=== PATIENT | male | born 1985 | race Caucasian/White ===

== ENCOUNTER 2017-10-24 19:51 | Emergency (ER) | payer SELFPAY ==
[2017-10-24 19:58] VITALS: BP 129/85; PULSE 79; RESP 16; TEMP 98.5; O2SAT 98
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
[2017-10-24] MEDS ORDERED: Lidocaine 2% w Epi 1:100,000 Inj IJ ONE (20:38)
[2017-10-24] MEDS: Lidocaine 2% w Epi 1:100,000 Inj IJ ONE (20:42)
== END 2017-10-24 21:45 | disposition home or self-care (01) ==
LOC: H.ER 19:51
DX: S81.011A Laceration without foreign body, right knee, initial encounter (principal); W19.XXXA Unspecified fall, initial encounter; Y92.89 Other specified places as the place of occurrence of the external cause